=== PATIENT | female | born 1970 | race Hispanic/Latino ===

== ENCOUNTER → 2018-07-12 | Outpatient (CLI) | payer OTHER ==
[~2018-07-12] MED LIST: FUROSEMIDE INJ 10 MG/ML 4 ML VIAL ONE
--- NOTE | 2018-07-13 00:08 | Diagnostic Imaging Report ---
Renal Scan with Lasix Washout Clinical information: Unspecified hydronephrosis; renal calculi Technique: Following intravenous administration of 10 mCi of Tc-99m MAG3, dynamic images of the kidneys in the posterior projection were obtained through 40 minutes. Lasix 40 mg was administered intravenously at 10 minutes post injection of the tracer. Report: Left kidney: Perfusion of the left kidney is prompt. The kidney has a reniform shape with some but minimal thinning of the renal cortex. Extraction of tracer from the blood pool by the renal parenchyma is normal. Clearance of tracer from the renal parenchyma is prompt. Dilated calices are present throughout the kidney but the renal pelvis is not dilated. Increased pooling of tracer is seen within the mildly dilated calices. Drainage of tracer from the pelvicalyceal system is prompt and adequate prior to administration of Lasix. No significant stasis of tracer is seen within the left ureter. Right kidney: Perfusion to the right kidney is prompt. The right kidney has a reniform shape with mild thinning of the renal cortex and a wedge-shaped cortical scar on the medial aspect of the upper pole. Extraction of tracer from the blood pool by the renal parenchyma is normal. Clearance of tracer from the renal parenchyma is prompt. Dilated calices are present throughout the kidney but the renal pelvis is not dilated. Increased pooling of tracer is seen within the mildly dilated calices. Some drainage of tracer from the pelvicalyceal system is seen prior to administration of Lasix. Washout of tracer from the pelvicalyceal system following administration of Lasix is rapid with a T-1/2 of 3 minutes (normal less than 15 minutes). No significant stasis of tracer is seen within the right ureter. Differential renal function: The left kidney contributes 56% of total renal function and the right kidney contributes 44% (normal 43-57%). Impression: 1. Some loss of renal parenchyma may be present in the left kidney as evidenced by minimal thinning of the renal cortex. The function of the left kidney is otherwise normal. Caliectasis is present throughout the kidney but the renal pelvis is not dilated. No physiologically significant obstruction of the renal collecting system is present. 2. Some loss of renal parenchyma is present in the right kidney as evidenced by minimal thinning of the renal cortex and a cortical scar in the upper pole. The loss or renal parenchyma is greater than in the left kidney and this accounts for the differential function of 44%. The function of the right kidney is otherwise normal. Caliectasis is present throughout the kidney but the renal pelvis is not dilated. No physiologically significant obstruction of the renal collecting system is present. Signed by: Dr. Nelli Meza M.D. on 07/13/2018 12:04 AM
== END ==
LOC: NM 12:55
PROVIDERS: ATTEND Urology
DX: N13.30 Unspecified hydronephrosis (principal)
CPT/HCPCS: 78708; A9562; J1940

== ENCOUNTER → 2018-09-06 | Outpatient (CLI) | payer OTHER ==
--- NOTE | 2018-09-06 13:52 | Diagnostic Imaging Report ---
EXAM: ABDOMEN-1VIEW (KUB) DATE: 09/06/2018 12:14 PM INDICATION: ^[id number] ^1240 ^CALCULUS OF KIDNEY COMPARISON: None FINDINGS: 2 supine views of the abdomen show a normal distribution of air in the small and large bowel. There is a large staghorn calculus in the right kidney measuring approximately 9.1 cm in length and 3.9 cm transversely at the upper collecting system. No calcifications are seen projected on the left kidney. No specific abnormal calcification projects on the expected path of either ureter. Small rounded calcifications projected on the urinary bladder compatible with phleboliths. Cholecystectomy clips are noted. There is also surgical clips seen in the right lower quadrant of the abdomen. No acute bony abnormality. IMPRESSION: 1. Large right staghorn renal calculus. 2. No evidence for bowel dilatation or obstruction. Signed by: Dr. Reagan Meneses M.D. on 09/06/2018 1:49 PM
== END ==
LOC: RAD 12:03
PROVIDERS: ATTEND Urology
DX: N20.0 Calculus of kidney (principal)
CPT/HCPCS: 74018

== ENCOUNTER → 2019-05-24 | Outpatient (CLI) | payer OTHER ==
--- NOTE | 2019-05-24 13:44 | Diagnostic Imaging Report ---
Exam: KUB - 2 views Indication: Renal calculus Comparison: KUB 09/06/2018 Findings: There has been interval fragmentation and treatment of the right lower pole staghorn calculi and placement of a right internal nephroureteral stent. A right external nephroureteral stent terminates in the mid to distal right ureter and courses through a larger Hernandez type catheter which terminates over the right lower pole. Right upper pole staghorn calculi appear unchanged. No radiographically apparent left urinary calculi. Nonobstructive bowel gas pattern. No free air. Status post cholecystectomy. No acute osseous injury. Impression: Interval treatment of right lower pole staghorn calculi and placement of right internal nephroureteral stent as well as a right external nephroureteral catheter terminating over the mid to distal right ureter, coursing through a Hernandez type catheter terminating over the right lower pole. Unchanged right upper pole staghorn calculi. Signed by: Ashley Amin MD on 05/24/2019 1:42 PM
== END ==
LOC: RAD 12:55
PROVIDERS: ATTEND Urology
DX: N20.0 Calculus of kidney (principal)
CPT/HCPCS: 74018

== ENCOUNTER → 2019-06-27 | Day surgery (SDC) | payer OTHER ==
[2019-06-26 15:38] LABS: BLOOD UREA NITROGEN 9 mg/dL (7-26); BUN/CREATININE RATIO 14 (6-25); CARBON DIOXIDE 26 mmol/L (22-29); CHLORIDE 104 mmol/L (98-107); CREATININE, SERUM 0.65 mg/dL (0.57-1.11); EST GLOMERULAR FILTRATION RATE > 60 ML/MIN (60-); GLUCOSE 131 mg/dL (74-118); SODIUM 138 mmol/L (136-145)
[~2019-06-27] MED LIST changes: +ATORVASTATIN CA20 MG PO; +CEFAZOLIN SOD 1 GM/NS 50ML 50 ML IV ONE; +DEXAMETHASONE SOD PHOS INJ 4 MG/ML VIAL ONE; -FUROSEMIDE INJ 10 MG/ML 4 ML VIAL ONE; +IOPAMIDOL 300MG/ML 50ML INFUS..BTL IV ONE; +IRON PO; +LIDOCAINE HCL 2% LOCAL INJ 5 ML SDV VIAL INJ ONE; +MIDAZOLAM HCL 2 MG/2 ML VIAL ONE; +NITROFURANTOIN100 MG PO; +ONDANSETRON HCL INJ 2MG/ML 2ML 2 MG/ML VIAL ONE; +PIOGLITAZONE HC45 MG PO; +PROPOFOL IV EMULSION 10 MG/ML 20 ML VIAL ONE; +SCOPOLAMINE 1.5 MG PATCH ONE; +SEVOFLURANE INHAL SOLN 250 ML PEN BTL ONE; +TRADJENTA5 MG PO; +VIT D PO; +metformin PO
--- OUTSIDE RECORDS SUMMARY | 2019-06-27 07:45 | XMS REPORT ---
Author Author [facility] Address Unknown Phone Unavailable Care Team Providers [employer] Name Role Phone ISRAEL JARAMILLO Unavailable Unavailable JUSTA ROBERTS Unavailable Unavailable Payers Payer Name Policy Type Policy Number Effective Date Expiration Date Problems This patient has no known problems. Allergies, Adverse Reactions, Alerts Allergy Name Allergy Type Status Severity Reaction(s) Onset Date Inactive Date Treating Clinician Comments No Known Allergies DA Active U 2018-06-23 00:00:00 Medications This patient has no known medications. Encounters Start Date/Time End Date/Time Encounter Type Admission Type Attending Clinicians Care Facility Care Department Encounter ID 2019-05-09 09:37:00 2019-05-09 09:37:00 Outpatient [facility] [id number] 2019-03-13 11:03:00 2019-03-13 11:03:00 Outpatient [facility] [id number] 2019-01-11 10:15:00 2019-01-11 10:15:00 Outpatient [facility] [id number] 2019-01-04 07:59:00 2019-01-04 07:59:00 Outpatient [facility] [id number] Results Test Description Test Time Test Comments Text Results Atomic Results Result Comments ABDOMEN-1VIEW (KUB) 2019-05-24 13:38:00 [place] [address] Patient Name: ANDRA DU MR #: [id number] : 1970 Age/Sex: 48/F Req #: [id number] Adm Physician: Ordered by: ISRAEL JARAMILLO MD Report #: [id number] Location: [facility] Room/Bed: Procedure: [id number] DX/ABDOMEN-1VIEW (KUB) Exam Date: 05/24/19 Exam Time: 1320 REPORT STATUS: Signed Exam: KUB - 2 views Indication: Renal calculus Comparison: KUB 09/06/2018 Findings: There has been interval fragmentation and treatment of the right lower pole staghorn calculi and placement of a right internal nephroureteral stent. A right external nephroureteral stent terminates in the mid to distal right ureter and courses through a larger Hernandez type catheter which terminates over the right lower pole. Right upper pole staghorn calculi appear unchanged. No radiographically apparent left urinary calculi. Nonobstructive bowel gas pattern. No free air. Status post cholecystectomy. No acute osseous injury. Impression: Interval treatment of right lower pole staghorn calculi and placement of right internal nephroureteral stent as well as a right external nephroureteral catheter terminating over the mid to distal right ureter, coursing through a Hernandez type catheter terminating over the right lower pole. Unchanged right upper pole staghorn calculi. Signed by: Amada Gunter MD on 05/24/2019 1:42 PM Dictated By: AMADA GUNTER MD 1342 Transcribed By: RIVERA on 05/24/19 1342 COPY TO: ISRAEL JARAMILLO MD ABDOMEN-1VIEW (KUB) 2018-09-06 13:46:00 [place] [address] Patient Name: ANDRA DU MR #: [id number] : 1970 Age/Sex: 47/F Req #: [id number] Adm Physician: Ordered by: JUSTA ROBERTS MD Report #: [id number] Location: [facility] Room/Bed: Procedure: [id number] DX/ABDOMEN-1VIEW (KUB) Exam Date: 09/06/18 Exam Time: 1240 REPORT STATUS: Signed EXAM: ABDOMEN-1VIEW (KUB) DATE: 09/06/2018 12:14 PM INDICATION: [id number] 1240 CALCULUS OF KIDNEY COMPARISON: None FINDINGS: 2 supine views of the abdomen show a normal distribution of air in the small and large bowel. There is a large staghorn calculus in the right kidney measuring approximately 9.1 cm in length and 3.9 cm transversely at the upper collecting system. No calcifications are seen projected on the left kidney. No specific abnormal calcification projects on the expected path of either ureter. Small rounded calcifications projected on the urinary bladder compatible with phleboliths. Cholecystectomy clips are noted. There is also surgical clips seen in the right lower quadrant of the abdomen. No acute bony abnormality. IMPRESSION: 1. Large right staghorn renal calculus. 2. No evidence for bowel dilatation or obstruction. Signed by: Dr. Reagan Hernández M.D. on 09/06/2018 1:49 PM Dictated By: REAGAN HERNÁNDEZ MD 1349 Transcribed By: RIVERA on 09/06/18 1349 COPY TO: JUSTA ROBERTS MD RENAL SCAN W/SALINA 2018-07-12 23:52:00 [place] [address] Patient Name: ANDRA DU MR #: [id number] : 1970 Age/Sex: 47/F Req #: [id number] Adm Physician: Ordered by: JUSTA ROBERTS MD Report #: [id number] Location: [place] Room/Bed: Procedure: [id number] NM/RENAL SCAN W/LASIX Exam Date: 07/12/18 Exam Time: 1400 REPORT STATUS: Signed Renal Scan with Lasix Washout Clinical information: Unspecified hydronephrosis; renal calculi Technique: Following intravenous administration of 10 mCi of Tc-99m MAG3, dynamic images of the kidneys in the posterior projection were obtained through 40 minutes. Lasix 40 mg was administered intravenously at 10 minutes post injection of the tracer. Report: Left kidney: Perfusion of the left kidney is prompt. The kidney has a reniform shape with some but minimal thinning of the renal cortex. Extraction of tracer from the blood pool by the renal parenchyma is normal. Clearance of tracer from the renal parenchyma is prompt. Dilated calices are present throughout the kidney but the renal pelvis is not dilated. Increased pooling of tracer is seen within the mildly dilated calices. Drainage of tracer from the pelvicalyceal system is prompt and adequate prior to administration of Lasix. No significant stasis of tracer is seen within the left ureter. Right kidney: Perfusion to the right kidney is prompt. The r ight kidney has a reniform shape with mild thinning of the renal cortex and a wedge-shaped cortical scar on the medial aspect of the upper pole. Extraction of tracer from the blood pool by the renal parenchyma is normal. Clearance of tracer from the renal parenchyma is prompt. Dilated calices are present throughout the kidney but the renal pelvis is not dilated. Increased pooling of tracer is seen within the mildly dilated calices. Some drainage of tracer from the pelvicalyceal system is seen prior to administration of Lasix. Washout of tracer from the pelvicalyceal system following administration of Lasix is rapid with a T-1/2 of 3 minutes (normal less than 15 minutes). No significant stasis of tracer is seen within the right ureter. Differential renal function: The left kidney contributes 56% of total renal function and the right kidney contributes 44% (normal 43-57%). Impression: 1. Some loss of renal parenchyma may be present in the left kidney as evidenced by minimal thinning of the renal cortex. The function of the left kidney is otherwise normal. Caliectasis is present throughout the kidney but the renal pelvis is not dilated. No physiologically significant obstruction of the renal collecting system is present. 2. Some loss of renal parenchyma is present in the right kidney as evidenced by minimal thinning of the renal cortex and a cortical scar in the upper pole. The loss or renal parenchyma is greater than in the left kidney and this accounts for the differential function of 44%. The function of the right kidney is otherwise normal. Caliectasis is present throughout the kidney but the renal pelvis is not dilated. No physiologically significant obstruction of the renal collecting system is present. Signed by: Dr. Demi Meza M.D. on 07/13/2018 12:04 AM Dictated By: DEMI MEZA MD 0004 Transcribed By: RIVERA on 07/13/18 0004 COPY TO: JUSTA ROBERTS MD URINALYSIS W/O MICRO 2018-06-23 23:50:00 UA COLOR (test code=COLU) LIGHT YELLOW YELLOW UA APPEARANCE (test code=APPU) CLEAR CLEAR UA GLUCOSE DIPSTICK (test code=DGLUU) norm mg/dL NEGATIVE UA BILIRUBIN DIPSTICK (test code=BILU) NEGATIVE mg/dL NEGATIVE UA KETONE DIPSTICK (test code=KETU) neg mg/dL NEGATIVE UA SPECIFIC GRAVITY (test code=SGU) 1.010 1.001-1.035 UA BLOOD DIPSTICK (test code=TYRESE) 150 (3+) Jose Martin/uL NEGATIVE UA PH DIPSTICK (test code=SADI) 7.0 5.0-8.0 UA PROTEIN DIPSTICK (test code=PROU) neg mg/dL Neg-15 UA UROBILINIOGEN DIPSTICK (test code=URO) norm mg/dL 0.0-0.2 UA NITRITE DIPSTICK (test code=DASIA) NEGATIVE NEGATIVE UA LEUKOCYTE ESTERASE DIPSTICK (test code=LEUU) 500 Hailey/uL (3+) uL NEGATIVE UA MICROSCOPIC NEEDED? (test code=UAMICRO) YES - CT ABD PELVIS W/O [id number] 22:13:00 Name: DUANDRA BRASHERA [facility] : 1970 Age/S: 47 / F [address] [facility] Unit #: [id number] Loc: [place] [address] Phys: Chica Wilson MD Acct: [id number] Dis Date: Status: REG ER PHONE #: [phone] Exam Date: 06/23/2018 2155 FAX #: [phone] Reason: flank pain hematuria eval for stone EXAMS: CPT CODE: [id number] CT ABD PELVIS W/O CONT 78448 HISTORY: flank pain hematuria eval for stone TECHNIQUE: 5mm axial CT images were obtained through the abdomen and pelvis without contrast. Sagittal and coronal reformatted images were generated. Automated exposure control for dose reduction. COMPARISON: None FINDINGS: Mild dependent subsegmental atelectasis. Cardiomegaly. Cholecystectomy. Nonenhanced liver, pancreas, spleen, and adrenal glands are unremarkable. 7.9 cm staghorn calculus casting the right collecting system. Obstructing 5 mm distal left ureteral calculus with moderate hydroneph rosis and renal parenchymal edema. Limited evaluation the GI tract without oral contrast. Stomach, small bowel, appendix, and colon are unre markable. No free air or free fluid. No lymphadenopathy. Abdominal aorta is normal caliber. Urinary bladder is unremarkable. N onenhanced uterus and ovaries are unremarkable. No pelvic free fluid. Degenerative changes of the spine, sacral iliac joints, and hips. IMPRESSION: Obstructing 5 mm distal left ureteral calculus with moderate hydronephrosis. 7.9 cm staghorn calculus casting the right collecting system. Electronical ly Signed by Sima Head D.O. on 06/23/2018 at 2213 Report ed and signed by: Sima Head D.O. PAGE 1 Signed Re port (CONTINUED) Name: ANDRA DU [facility] : 1970 Age/S: 47 / F [address] [facility] Unit #: [id number] Loc: [facility] 7 8385 Phys: Chica Wilson MD Acct: [id number] Dis Date: Status: REG ER PHONE #: [phone] Exam Date: 06/23/20182154 FAX #: [phone] Reason: flank pain hematuria eval for stone EXAMS: CPT CODE: [id number] CT ABD PELVIS W/O CONT 84873 <Continued> CC: Chica Wilson MD Technologist:Salinas Schaefer RT(R) CTDI: DLP: Trnscb Date/Time: 06/23/2018 (2212) [email or web address] Orig Print D/T: S: 06/23/2018 (2215) CTDI: DLP: PAGE 2 Signed Report COMPREHENSIVE METABOLIC [id number] 21:11:00* Test Item Value Reference Range Comments SODIUM (test code=NA) 136 mmol/L 135-148 POTASSIUM (test code=K) 4.0 mmol/L 3.5-5.1 CHLORIDE (test code=CL) 99 mmol/L 101-109 CARBON DIOXIDE (test code=CO2) 26.8 mmol/L 21-32 ANION GAP (test code=GAP) 14 mmol/L 10-20 GLUCOSE (test code=GLU) 183 mg/dL 74-106 BLOOD UREA NITROGEN (test code=BUN) 17 mg/dL 3-21 CREATININE (test code=CREAT) 1.01 mg/dL 0.55-1.3 BUN/CREATININE RATIO (test code=BUN/CREA) 16.8 10-20 TOTAL PROTEIN (test code=PROT) 8.0 g/dL 6.5-8.4 ALBUMIN (test code=ALB) 3.7 g/dL 3.4-4.8 GLOBULIN (test code=GLOB) 4.3 G/DL 1-10 ALBUMIN/GLOBULIN RATIO (test code=A/G) 0.9 RATIO 0.75-1.50 CALCIUM (test code=CA) 8.8 mg/dL 8.4-10.2 BILIRUBIN TOTAL (test code=BILT) 0.50 mg/dL 0.0-1.0 SGOT/AST (test code=AST) 18 U/L 6-32 SGPT/ALT (test code=ALT) 36 U/L 12-78 Note: Change in REFERENCE RANGE due to new reagent method. ALKALINE PHOSPHATASE TOTAL (test code=ALKP) 106 U/L 38-126 [id number] 21:11:00* Test Item Value Reference Range Comments LIPASE (test code=LIP) 130 U/L 128-270 [id number] 21:11:00* Test Item Value Reference Range Comments MAGNESIUM (test code=MAG) 1.6 mg/dL 1.6-2.3 COMPREHENSIVE METABOLIC [id number] 21:06:00* Test Item Value Reference Range Comments SODIUM (test code=NA) 136 mmol/L 135-148 POTASSIUM (test code=K) 4.0 mmol/L 3.5-5.1 CHLORIDE (test code=CL) 99 mmol/L 101-109 CARBON DIOXIDE (test code=CO2) 26.8 mmol/L 21-32 ANION GAP (test code=GAP) 14 mmol/L 10-20 GLUCOSE (test code=GLU) 183 mg/dL 74-106 BLOOD UREA NITROGEN (test code=BUN) 17 mg/dL 3-21 CREATININE (test code=CREAT) 1.01 mg/dL 0.55-1.3 BUN/CREATININE RATIO (test code=BUN/CREA) 16.8 10-20 TOTAL PROTEIN (test code=PROT) gram/dL 6.4-8.2 ALBUMIN (test code=ALB) g/dL 3.4-5.0 GLOBULIN (test code=GLOB) g/dL 2.7-4.2 ALBUMIN/GLOBULIN RATIO (test code=A/G) 0.75-1.50 CALCIUM (test code=CA) 8.8 mg/dL 8.4-10.2 BILIRUBIN TOTAL (test code=BILT) mg/dL 0.2-1.2 SGOT/AST (test code=AST) IUnit/L 15-37 SGPT/ALT (test code=ALT) U/L 10-69 ALKALINE PHOSPHATASE TOTAL (test code=ALKP) IUnit/L 45-117 [id number] 21:06:00* Test Item Value Reference Range Comments LIPASE (test code=LIP) Unit/L 144-286 [id number] 21:06:00* Test Item Value Reference Range Comments MAGNESIUM (test code=MAG) mg/dL 1.8-2.4 URINALYSIS [id number] 21:05:00* Test Item Value Reference Range Comments UA COLOR (test code=COLU) YELLOW YELLOW UA APPEARANCE (test code=APPU) HAZY CLEAR UA GLUCOSE DIPSTICK (test code=DGLUU) 100 (1+) mg/dL NEGATIVE UA BILIRUBIN DIPSTICK (test code=BILU) NEGATIVE mg/dL NEGATIVE UA KETONE DIPSTICK (test code=KETU) 5 (Trace) mg/dL NEGATIVE UA SPECIFIC GRAVITY (test code=SGU) 1.015 1.001-1.035 UA BLOOD DIPSTICK (test code=TYRESE) 250 (4+) Jose Martin/uL NEGATIVE UA PH DIPSTICK (test code=SADI) 8.0 5.0-8.0 UA PROTEIN DIPSTICK (test code=PROU) 30 (1+) mg/dL Neg-15 UA UROBILINIOGEN DIPSTICK (test code=URO) norm mg/dL 0.0-0.2 UA NITRITE DIPSTICK (test code=DASIA) NEGATIVE NEGATIVE UA LEUKOCYTE ESTERASE DIPSTICK (test code=LEUU) 500 Hailey/uL (3+) uL NEGATIVE UA WBC (test code=WBCU) 40-50 per HPF 0-5 IN SOME URINARY TRACT INFECTIONS THERE MAY NOT BE ENOUGHWBCs IN THE URINE TO TRIGGER AN AUTOMATIC (REFLEX) URINECULTURE. A SEPERATE ORDER FOR URINE CULTURE IS RECOMMENDEDIF THERE IS STRONG SUPPORT FOR A URINARY TRACT INFECTIONCLINICALLY. UA RBC (test code=RBCU) 50-100 per HPF 0-5 UA EPITHELIAL CELLS (test code=EPIU) Moderate (5-10/hpf) per HPF Few UA BACTERIA (test code=BACU) MODERATE per HPF NONE URINALYSIS W/O [id number] 21:05:00* Test Item Value Reference Range Comments UA MICROSCOPIC NEEDED? (test code=UAMICRO) YES UR HCG [id number] 21:05:00* Test Item Value Reference Range Comments UR HCG QUAL (test code=HCGQLU) NEGATIVE This HCGQL test is NOT applicable for MALE patients.Check with nurse about probable order error.If Tumor Marker Test needed, nurse should order test "HCGTU"(Test #550.04723) URINALYSIS [id number] 21:03:00* Test Item Value Reference Range Comments UA COLOR (test code=COLU) YELLOW YELLOW UA APPEARANCE (test code=APPU) HAZY CLEAR UA GLUCOSE DIPSTICK (test code=DGLUU) 100 (1+) mg/dL NEGATIVE UA BILIRUBIN DIPSTICK (test code=BILU) NEGATIVE mg/dL NEGATIVE UA KETONE DIPSTICK (test code=KETU) 5 (Trace) mg/dL NEGATIVE UA SPECIFIC GRAVITY (test code=SGU) 1.015 1.001-1.035 UA BLOOD DIPSTICK (test code=TYRESE) 250 (4+) Jose Martin/uL NEGATIVE UA PH DIPSTICK (test code=SADI) 8.0 5.0-8.0 UA PROTEIN DIPSTICK (test code=PROU) 30 (1+) mg/dL Neg-15 UA UROBILINIOGEN DIPSTICK (test code=URO) norm mg/dL 0.0-0.2 UA NITRITE DIPSTICK (test code=DASIA) NEGATIVE NEGATIVE UA LEUKOCYTE ESTERASE DIPSTICK (test code=LEUU) 500 Hailey/uL (3+) uL NEGATIVE UA WBC (test code=WBCU) per HPF 0-5 URINALYSIS W/O [id number] 21:03:00* Test Item Value Reference Range Comments UA MICROSCOPIC NEEDED? (test code=UAMICRO) YES UR HCG [id number] 21:03:00* Test Item Value Reference Range Comments UR HCG QUAL (test code=HCGQLU) NEGATIVE This HCGQL test is NOT applicable for MALE patients.Check with nurse about probable order error.If Tumor Marker Test needed, nurse should order test "HCGTU"(Test #550.70368) URINALYSIS [id number] 21:03:00* Test Item Value Reference Range Comments UA COLOR (test code=COLU) YELLOW YELLOW UA APPEARANCE (test code=APPU) HAZY CLEAR UA GLUCOSE DIPSTICK (test code=DGLUU) 100 (1+) mg/dL NEGATIVE UA BILIRUBIN DIPSTICK (test code=BILU) NEGATIVE mg/dL NEGATIVE UA KETONE DIPSTICK (test code=KETU) 5 (Trace) mg/dL NEGATIVE UA SPECIFIC GRAVITY (test code=SGU) 1.015 1.001-1.035 UA BLOOD DIPSTICK (test code=TYRESE) 250 (4+) Jose Martin/uL NEGATIVE UA PH DIPSTICK (test code=SADI) 8.0 5.0-8.0 UA PROTEIN DIPSTICK (test code=PROU) 30 (1+) mg/dL Neg-15 UA UROBILINIOGEN DIPSTICK (test code=URO) norm mg/dL 0.0-0.2 UA NITRITE DIPSTICK (test code=DASIA) NEGATIVE NEGATIVE UA LEUKOCYTE ESTERASE DIPSTICK (test code=LEUU) 500 Hailey/uL (3+) uL NEGATIVE UA WBC (test code=WBCU) per HPF 0-5 URINALYSIS W/O [id number] 21:03:00* Test Item Value Reference Range Comments UA MICROSCOPIC NEEDED? (test code=UAMICRO) YES UR HCG [id number] 21:03:00* Test Item Value Reference Range Comments UR HCG QUAL (test code=HCGQLU) NEGATIVE This HCGQL test is NOT applicable for MALE patients.Check with nurse about probable order error.If Tumor Marker Test needed, nurse should order test "HCGTU"(Test #550.09183) CBC W/AUTO [id number] 20:57:00* Test Item Value Reference Range Comments WHITE BLOOD CELL (test code=WBC) 12.7 K/mm3 4.5-12.5 RED BLOOD CELL (test code=RBC) 4.27 mill/mm3 3.7-5.2 HEMOGLOBIN (test code=HGB) 11.5 gram/dL 11.5-15.5 HEMATOCRIT (test code=HCT) 35.7 % 36.0-46.0 MEAN CELL VOLUME (test code=MCV) 83.6 fL 80-98 MEAN CELL HGB (test code=MCH) 26.9 picogram 27.0-33.0 MEAN CELL HGB CONCETRATION (test code=MCHC) 32.2 gram/dL 33.0-36.0 RED CELL DISTRIBUTION WIDTH (test code=RDW) 15.4 % 11.6-16.2 RED CELL DISTRIBUTION WIDTH SD (test code=RDW-SD) 46.2 fL 39.1-52.0 PLATELET COUNT (test code=PLT) 329 K/mm3 150-450 MEAN PLATELET VOLUME (test code=MPV) 10.9 fL 6.7-11.0 NEUTROPHIL % (test code=NT%) 76.5 % 39.0-69.0 LYMPHOCYTE % (test code=LY%) 16.3 % 25.0-55.0 MONOCYTE % (test code=MO%) 6.3 % 0.0-10.0 EOSINOPHIL % (test code=EO%) 0.6 % 0.0-5.0 BASOPHIL % (test code=BA%) 0.3 % 0.0-1.0 NEUTROPHIL # (test code=NT#) 9.71 K/mm3 1.8-7.7 LYMPHOCYTE # (test code=LY#) 2.07 K/mm3 1.0-5.0 MONOCYTE # (test code=MO#) 0.80 K/mm3 0-0.8 EOSINOPHIL # (test code=EO#) 0.07 K/mm3 0.0-0.5 BASOPHIL # (test code=BA#) 0.04 K/mm3 0.0-0.2 MANUAL DIFF REQUIRED (test code=MDIFF) NO
[2019-06-27 11:35] VITALS: BP 134/79
--- NOTE | 2019-06-27 18:34 | Operative Report ---
DATE OF PROCEDURE: 06/27/2019 SURGEON: Merry Martins MD SERVICE: Urology. PREOPERATIVE DIAGNOSES: 1. Large right kidney stones. 2. Right nephrostomy tube. 3. J-stent in place on the right side. 4. Urinary tract infections. 5. Microhematuria. POSTOPERATIVE DIAGNOSES: 1. Large right kidney stones. 2. Right nephrostomy tube. 3. J-stent in place on the right side. 4. Urinary tract infections. 5. Microhematuria. OPERATIONS PERFORMED: 1. ESWL lithotripsy of right kidney stone (this is a staged procedure, which was planned ahead of time and will require additional procedures). 2. Nephrostogram under fluoroscopic control. TECHNOLOGY ASSISTANT: None. ANESTHESIA: General. CLINICAL INDICATION NOTE: This is a 48-year-old patient with a large diagonal stone on the right side, it was treated initially with a percutaneous nephrolithotomy, now she was brought for additional staged procedures ESWL of the right kidney stones. The patient understands that there is a limited number of shocks that we can give and say she will require additional procedures. DESCRIPTION OF PROCEDURE AND FINDINGS: After appropriate level of anesthesia was achieved, the patient was placed in lithotomy position. The patient was placed in a supine position. The stone was brought to the focus of treatment and treated with 3000 shocks today. area of stones were treated first and then it was calyceal stone. The stone appeared to change shape during the procedure. After completing the lithotripsy, a nephrostogram was done under fluoroscopic control, demonstrating fragments of stone and drainage of the kidney was demonstrated down to the bladder. The patient tolerated the procedure well, was transferred in satisfactory condition to recovery room. She will be followed in 2 weeks for planning for other treatment. Merry Martins MD [place]/MODL /[id number]
== END | disposition home or self-care (01) ==
LOC: OR 07:43
PROVIDERS: ATTEND Urology
DX: N20.0 Calculus of kidney (principal); Z93.6 Other artificial openings of urinary tract status; Z96.0 Presence of urogenital implants; N39.0 Urinary tract infection, site not specified; E11.9 Type 2 diabetes mellitus without complications; Z01.810 Encounter for preprocedural cardiovascular examination
CPT/HCPCS: 36415; 50590; 80048; 81025; 82948; 93005; J0690; J1100; J2001; J2250; J2405

== ENCOUNTER → 2019-07-12 | Outpatient (CLI) | payer OTHER ==
[~2019-07-12] MED LIST changes: -CEFAZOLIN SOD 1 GM/NS 50ML 50 ML IV ONE; -DEXAMETHASONE SOD PHOS INJ 4 MG/ML VIAL ONE; -IOPAMIDOL 300MG/ML 50ML INFUS..BTL IV ONE; -LIDOCAINE HCL 2% LOCAL INJ 5 ML SDV VIAL INJ ONE; -MIDAZOLAM HCL 2 MG/2 ML VIAL ONE; -ONDANSETRON HCL INJ 2MG/ML 2ML 2 MG/ML VIAL ONE; -PROPOFOL IV EMULSION 10 MG/ML 20 ML VIAL ONE; -SCOPOLAMINE 1.5 MG PATCH ONE; -SEVOFLURANE INHAL SOLN 250 ML PEN BTL ONE
--- NOTE | 2019-07-12 17:14 | Diagnostic Imaging Report ---
Exam: KUB - 2 views Indication: Renal calculus Comparison: Multiple prior KUBs, most recently of 05/24/2019 Findings: Right internal nephroureteral stent in place. Unchanged appearance of right upper pole staghorn calculus. No radiographically apparent left renal calculi. Nonobstructive bowel gas pattern. No free air. No acute osseous injury. Impression: Right internal nephroureteral stent in place. Unchanged right upper pole staghorn calculi. Signed by: Ashley Amin MD on 07/12/2019 5:11 PM
== END ==
LOC: RAD 15:05
PROVIDERS: ATTEND Urology
DX: N20.0 Calculus of kidney (principal)
CPT/HCPCS: 74018

== ENCOUNTER → 2019-08-01 | Day surgery (SDC) | payer OTHER ==
[2019-07-29 09:53] LABS: ANION GAP 12.8 mmol/L (8-16); BLOOD UREA NITROGEN 8 mg/dL (7-26); BUN/CREATININE RATIO 13 (6-25); CALCIUM 9.2 mg/dL (8.4-10.2); CARBON DIOXIDE 26 mmol/L (22-29); CHLORIDE 105 mmol/L (98-107); CREATININE, SERUM 0.64 mg/dL (0.57-1.11); EST GLOMERULAR FILTRATION RATE > 60 ML/MIN (60-); GLUCOSE 121 mg/dL (74-118); POTASSIUM 3.8 mmol/L (3.5-5.1); SODIUM 140 mmol/L (136-145)
[~2019-08-01] MED LIST changes: +CEFAZOLIN SOD 1 GM/NS 50ML 50 ML IV ONE; +DEXAMETHASONE SOD PHOS INJ 4 MG/ML VIAL ONE; +FENTANYL CITRATE/PF 100MCG/2 ML INJ ONE; +IOPAMIDOL 300MG/ML 50ML INFUS..BTL IV ONE; +LIDOCAINE HCL 2% LOCAL INJ 5 ML SDV VIAL INJ ONE; +METOCLOPRAMIDE HCL 10 MG/2ML VIAL ONE; +ONDANSETRON HCL INJ 2MG/ML 2ML 2 MG/ML VIAL ONE; +PROPOFOL IV EMULSION 10 MG/ML 20 ML VIAL ONE; +SEVOFLURANE INHAL SOLN 250 ML PEN BTL ONE
[2019-08-01 11:35] VITALS: BP 131/78
--- NOTE | 2019-08-01 22:10 | Operative Report ---
DATE OF PROCEDURE: 08/01/2019 SURGEON: Merry Martins MD SERVICE: Urology. PREOPERATIVE DIAGNOSES: 1. 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 2. Right double-J stent. 3. Right hydronephrosis. 4. Microhematuria. POSTOPERATIVE DIAGNOSES: 1. 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 2. Right double-J stent. 3. Right hydronephrosis. 4. Microhematuria. OPERATIONS PERFORMED: 1. Cystoscopy and right retrograde pyelogram. This is done as part of the assessment of the microhematuria, not related to the other side. 2. Removal of double-J stent from the right side. 3. Right retrograde pyelogram under fluoroscopic control. 4. Right ureteroscopy with laser fragmentation of multiple stones in the renal pelvis, mid taryn, and upper calices. 5. Interpretation of x-ray, radiologist not present. 6. Supervision of fluoroscopy, radiologist not present. ASSISTANT GROCERY: None. ANESTHESIA: General. CLINICAL INDICATION NOTE: This is a 48-year-old patient, who had underwent in the past staged procedure of percutaneous nephrolithotomy of multiple stones in the right kidney. The patient indeed has a nephrostomy tube that eventually was displaced and fell off. She does have a double-J stent in place and the patient was brought for reassessment presently. She may require additional percutaneous nephrostomy. 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 However, she is brought for reassessment and fragmentation of a large stone as possible with the laser. DESCRIPTION OF PROCEDURE AND FINDING: After proper level of anesthesia was achieved, she was placed in lithotomy position, prepped and draped in usual sterile fashion. Urethra inspected is unremarkable. Bladder neck is normal. Double-J stent is protruding to the right ureteral orifice. Open-ended catheter was inserted to the left side and retrograde pyelogram demonstrating a normal left collecting system. Following this, the double-J stent was pulled and the wire was advanced up into the kidney. This was followed by placement of the ureteral access sheath. This was followed by placement of a retrograde pyelogram demonstrating the stone in the upper calices, which are quite large. There was some defect of stones in the mid taryn, pelvis, and upper ureter. A wire was kept in place and an access sheath was placed. Flexible ureteroscopy was done. The multiple stones were encountered and fragmented with of the 300 micron laser fiber. The multiple stones were present in the upper ureter, mid taryn, and fragmentation of the staghorn stone, one side of it was done. This was quite a tedious process due to the multiple stones. Stone analysis was send in the past. It is not necessary at the present. Following a prolonged fragmentation of all the small fragment, the wire was kept in place. The sheath was removed and a 7-Spanish 24 cm long double-J stent was properly positioned on the right side. The patient tolerated procedure well, was transferred in satisfactory condition to recovery room. This is basically a staged procedure. She will require additional procedure and she knows about it. MD FERNANDO Davis/EFREN /[id number]
== END | disposition home or self-care (01) ==
LOC: OR 07:06
PROVIDERS: ATTEND Urology
DX: N20.0 Calculus of kidney (principal); Z46.6 Encounter for fitting and adjustment of urinary device; N13.30 Unspecified hydronephrosis; E11.9 Type 2 diabetes mellitus without complications; Z01.812 Encounter for preprocedural laboratory examination; Z11.59 Encounter for screening for other viral diseases; Z79.84 Long term (current) use of oral hypoglycemic drugs
CPT/HCPCS: 36415; 74420; 80048; 81025; 82948; 87635; C1766; C2617; J0690; J1100; J2001; J2405; J2765; J3010

== ENCOUNTER → 2019-11-22 | Outpatient (CLI) | payer OTHER ==
[~2019-11-22] MED LIST changes: -CEFAZOLIN SOD 1 GM/NS 50ML 50 ML IV ONE; -DEXAMETHASONE SOD PHOS INJ 4 MG/ML VIAL ONE; -FENTANYL CITRATE/PF 100MCG/2 ML INJ ONE; -IOPAMIDOL 300MG/ML 50ML INFUS..BTL IV ONE; -LIDOCAINE HCL 2% LOCAL INJ 5 ML SDV VIAL INJ ONE; -METOCLOPRAMIDE HCL 10 MG/2ML VIAL ONE; -ONDANSETRON HCL INJ 2MG/ML 2ML 2 MG/ML VIAL ONE; -PROPOFOL IV EMULSION 10 MG/ML 20 ML VIAL ONE; -SEVOFLURANE INHAL SOLN 250 ML PEN BTL ONE
--- NOTE | 2019-11-22 14:01 | Diagnostic Imaging Report ---
EXAM: ABDOMEN-1VIEW (KUB) DATE: 11/22/2019 1:05 PM INDICATION: Calculus of kidney COMPARISON: 10/17/2019 FINDINGS/IMPRESSION: Right-sided double-J ureteral stent identified in stable position. Grossly stable appearing fragmented staghorn type calculus again projecting over the right renal pelvis. No new radiographically evident renal or urinary calculi appreciated. Bowel gas pattern is nonobstructive. No acute osseous abnormality is identified. Signed by: Dr. Maurice Rodas MD on 11/22/2019 1:53 PM
== END ==
LOC: RAD 12:44
PROVIDERS: ATTEND Urology
DX: N20.0 Calculus of kidney (principal)
CPT/HCPCS: 74018

== ENCOUNTER → 2019-11-22 | Outpatient (CLI) | payer OTHER ==
--- NOTE | 2019-11-22 14:01 | Diagnostic Imaging Report ---
EXAM: SHOULDER RIGHT COMPLETE DATE: 11/22/2019 1:05 PM INDICATION: Shoulder pain COMPARISON: None FINDINGS: Internal rotation and external rotation views of the right shoulder demonstrate no evidence for acute fracture or dislocation. Bony mineralization is within normal limits. No focal lytic or blastic abnormalities are identified. The glenohumeral joint and AC joint are within normal limits. The surrounding soft tissues are unremarkable without evidence or radiopaque foreign body. The visualized right hemithorax is clear. IMPRESSION: No acute radiographic abnormality identified within the right shoulder. Signed by: Dr. Maurice Rodas MD on 11/22/2019 1:50 PM
== END ==
LOC: RAD 12:51
PROVIDERS: ATTEND Community Health Worker
DX: M25.511 Pain in right shoulder (principal)

== ENCOUNTER → 2019-12-16 | Day surgery (SDC) | payer OTHER ==
[2019-12-12 13:50] LABS: ANION GAP 13.5 mmol/L (8-16); BLOOD UREA NITROGEN 11 mg/dL (7-26); BUN/CREATININE RATIO 15 (6-25); CALCIUM 8.7 mg/dL (8.4-10.2); CARBON DIOXIDE 25 mmol/L (22-29); CHLORIDE 102 mmol/L (98-107); CREATININE, SERUM 0.73 mg/dL (0.57-1.11); EST GLOMERULAR FILTRATION RATE > 60 ML/MIN (60-); GLUCOSE 166 mg/dL (74-118); POTASSIUM 3.5 mmol/L (3.5-5.1); SODIUM 137 mmol/L (136-145)
[~2019-12-16] MED LIST changes: +B&O 60MG R/S 60 MG SUPP PR ONE; +CEFAZOLIN SOD 1 GM/NS 50ML 50 ML IV ONE; +DEXAMETHASONE SOD PHOS INJ 4 MG/ML VIAL ONE; +FENTANYL CITRATE/PF 100MCG/2 ML INJ ONE; +HYDROCHLOROTHIA25 MG PO; +IOPAMIDOL 300MG/ML 50ML INFUS..BTL IV ONE; +LIDOCAINE HCL 2% LOCAL INJ 5 ML SDV VIAL INJ ONE; +MIDAZOLAM HCL 2 MG/2 ML VIAL ONE; +ONDANSETRON HCL INJ 2MG/ML 2ML 2 MG/ML VIAL ONE; +PROPOFOL IV EMULSION 10 MG/ML 20 ML VIAL ONE; +SEVOFLURANE INHAL SOLN 250 ML PEN BTL ONE
[2019-12-16 14:35] VITALS: BP 143/88
--- NOTE | 2019-12-17 03:46 | Operative Report ---
DATE OF PROCEDURE: 12/16/2019 SURGEON: Merry Martins MD SERVICE: Urology. PREOPERATIVE DIAGNOSES: 1. Right nephrolithiasis. 2. Right double-J stent. 3. Right microhematuria. POSTOPERATIVE DIAGNOSES: 1. Right nephrolithiasis. 2. Right double-J stent. 3. Right microhematuria. OPERATIONS PERFORMED: 1. Cystoscopy and left retrograde pyelograms under fluoroscopic control. This is not related to the other side and done with separate instrument. 2. Removal of double-J stent from the right side. 3. Right retrograde pyelograms under fluoroscopic control. 4. Right ureteroscopy with holmium laser fragmentation of stones. 5. Removal of stone with stone basket. 6. Placement of double-J stent 7-Norwegian 24 cm long to the right side. 7. Interpretation of x-ray, radiologist not present. 8. Supervision of fluoroscopy, radiologist not present. NUCLEAR MEDICINE CHIEF TECHNOLOGIST: None. ANESTHESIA: General. CLINICAL INDICATION: Note, this is a 49-year-old patient with large stones on the right side. She was brought for further treatment as one of the stages in managing the stones. Procedure was discussed with the patient. Potential benefit and complication discussed, explained, and she is under the knowledge that she may need an additional procedures in the future. DESCRIPTION OF PROCEDURE AND FINDINGS: After the proper level of anesthesia was achieved, she was placed in lithotomy position, prepped and draped in a sterile fashion. Urethra inspected, unremarkable. Bladder outlet is normal. Both ureteral orifices are in normal position. Double-J stent was protruding from the right side. Open-end catheter was inserted to the left side. Retrograde pyelogram demonstrating a normal collecting system and ureter on the left side. Following this, the double-J stent from the right side was removed, open-end catheter was inserted and retrograde pyelograms were done demonstrating some areas of dilation of the collecting system on the right side and the stones. A wire was kept in place and the excess sheath was advanced up into . Following this, the flexible ureteroscopy was done. Stones were identified and fragmented with the holmium laser using a 200 fiber. Following this, stone basket was used to remove some fragments. The wire was kept in place and a double J stent 7-Norwegian 24 cm long was properly positioned on the right side. Proper position was verified by x-ray and endoscopy. The patient tolerated the procedure well, was transferred in satisfactory condition to recovery room. She will be followed in the office for further treatment. MD FERNANDO Davis/EFREN /[id number]
== END | disposition home or self-care (01) ==
LOC: OR 10:45
PROVIDERS: ATTEND Urology
DX: N20.0 Calculus of kidney (principal); Z46.6 Encounter for fitting and adjustment of urinary device; I10 Essential (primary) hypertension; Z01.810 Encounter for preprocedural cardiovascular examination; Z01.812 Encounter for preprocedural laboratory examination; Z11.59 Encounter for screening for other viral diseases; Z79.84 Long term (current) use of oral hypoglycemic drugs
CPT/HCPCS: 36415 ×2; 52356; 74420; 80048; 81025; 82948; 88300; 93005; C1758; C1766; C2617; J0690; J1100; J2001; J2250; J2405; J2704; J3010; Q9967; U0002

== ENCOUNTER → 2020-01-01 | Outpatient (CLI) | payer OTHER ==
[~2020-01-01] MED LIST changes: -B&O 60MG R/S 60 MG SUPP PR ONE; -CEFAZOLIN SOD 1 GM/NS 50ML 50 ML IV ONE; -DEXAMETHASONE SOD PHOS INJ 4 MG/ML VIAL ONE; -FENTANYL CITRATE/PF 100MCG/2 ML INJ ONE; -IOPAMIDOL 300MG/ML 50ML INFUS..BTL IV ONE; -LIDOCAINE HCL 2% LOCAL INJ 5 ML SDV VIAL INJ ONE; -MIDAZOLAM HCL 2 MG/2 ML VIAL ONE; -ONDANSETRON HCL INJ 2MG/ML 2ML 2 MG/ML VIAL ONE; -PROPOFOL IV EMULSION 10 MG/ML 20 ML VIAL ONE; -SEVOFLURANE INHAL SOLN 250 ML PEN BTL ONE
--- NOTE | 2020-01-01 09:56 | Diagnostic Imaging Report ---
Abdomen, one view INDICATION: ^[id number] ^[id number] ^CALCULUS OF KIDNEY Comparison: 11/22/2019. Discussion: Stable right-sided double-J ureteral stent. Interval improvement in the amount of fragmented right staghorn calculi projecting over the right renal pelvis. No definite new radiographically apparent renal calculi. Stable postsurgical changes from cholecystectomy. Stable phlebolith in the pelvis. Bowel gas pattern is nonobstructive. Moderate colonic stool retention is noted. IMPRESSION: Interval improvement in the amount of residual fragmented right staghorn calculus. No definite new radiographically apparent renal calculi. Stable right double-J internal ureteral stent. Signed by: Oswaldo Baron MD on 01/01/2020 9:52 AM
== END ==
LOC: RAD 08:57
PROVIDERS: ATTEND Urology
DX: N20.0 Calculus of kidney (principal)
CPT/HCPCS: 74018

== ENCOUNTER → 2020-01-24 | Day surgery (SDC) | payer OTHER ==
[2020-01-21 11:56] LABS: ANION GAP 11.7 mmol/L (8-16); BLOOD UREA NITROGEN 8 mg/dL (7-26); BUN/CREATININE RATIO 13 (6-25); CALCIUM 8.5 mg/dL (8.4-10.2); CARBON DIOXIDE 24 mmol/L (22-29); CHLORIDE 107 mmol/L (98-107); CREATININE, SERUM 0.64 mg/dL (0.57-1.11); EST GLOMERULAR FILTRATION RATE > 60 ML/MIN (60-); GLUCOSE 122 mg/dL (74-118); POTASSIUM 3.7 mmol/L (3.5-5.1); SODIUM 139 mmol/L (136-145)
[~2020-01-24] MED LIST changes: +CEFAZOLIN SOD 1 GM/NS 50ML 50 ML IV ONE; +DEXAMETHASONE SOD PHOS INJ 4 MG/ML VIAL ONE; +FENTANYL CITRATE/PF 100MCG/2 ML INJ ONE; +LIDOCAINE HCL 2% LOCAL INJ 5 ML SDV VIAL INJ ONE; +MIDAZOLAM HCL 2 MG/2 ML VIAL ONE; +ONDANSETRON HCL INJ 2MG/ML 2ML 2 MG/ML VIAL ONE; +PROPOFOL IV EMULSION 10 MG/ML 20 ML VIAL ONE; +SEVOFLURANE INHAL SOLN 250 ML PEN BTL ONE
[2020-01-24 10:25] VITALS: BP 142/82
--- NOTE | 2020-01-24 16:42 | Operative Report ---
DATE OF PROCEDURE: 01/24/2020 SURGEON: Merry Martins MD SERVICE: Urology. PREOPERATIVE DIAGNOSES: 1. Right nephrolithiasis and history of Staghorn stone. 2. Presence of double-J stent on the right side. 3. Microhematuria. POSTOPERATIVE DIAGNOSES: 1. Right nephrolithiasis and history of Staghorn stone. 2. Presence of double-J stent on the right side. 3. Microhematuria. OPERATION PERFORMED: ESWL lithotripsy of right kidney stone. SUPPLY SPECIALIST: None. ANESTHESIA: General. CLINICAL INDICATION: Note this is a 49-year-old patient that had stage procedures for large Staghorn stone of the right kidney. She has a stent in place and she was brought for lithotripsy of some residual stones. The procedure was discussed with the patient. She knows that this is a staged procedure. She may require the stent as well as additional procedures. DESCRIPTION OF PROCEDUREAND FINDINGS: After appropriate level of anesthesia was achieved, the patient was placed in supine position. The stone was brought to the focus of treatment and treated with 3000 shocks initially at a low level at 60 per minute after several 100s was increased to 60 and eventually to 120. The stone disintegrated very well. The patient tolerated procedure well and was transferred in satisfactory condition to recovery. Postop orders and followup was given. Merry Martins MD [facility]/MODL /[id number]
== END | disposition home or self-care (01) ==
LOC: OR 06:59
PROVIDERS: ATTEND Urology
DX: N20.0 Calculus of kidney (principal); Z96.0 Presence of urogenital implants; E11.9 Type 2 diabetes mellitus without complications; Z01.812 Encounter for preprocedural laboratory examination; Z11.59 Encounter for screening for other viral diseases; Z79.84 Long term (current) use of oral hypoglycemic drugs
CPT/HCPCS: 36415 ×2; 50590; 80048; 81025; 82948; J0690; J1100; J2001; J2250; J2405; J2704; J3010; U0002

== ENCOUNTER → 2020-02-18 | Outpatient (CLI) | payer OTHER ==
[~2020-02-18] MED LIST changes: -CEFAZOLIN SOD 1 GM/NS 50ML 50 ML IV ONE; -DEXAMETHASONE SOD PHOS INJ 4 MG/ML VIAL ONE; -FENTANYL CITRATE/PF 100MCG/2 ML INJ ONE; -LIDOCAINE HCL 2% LOCAL INJ 5 ML SDV VIAL INJ ONE; -MIDAZOLAM HCL 2 MG/2 ML VIAL ONE; -ONDANSETRON HCL INJ 2MG/ML 2ML 2 MG/ML VIAL ONE; -PROPOFOL IV EMULSION 10 MG/ML 20 ML VIAL ONE; -SEVOFLURANE INHAL SOLN 250 ML PEN BTL ONE
== END ==
LOC: RAD 14:22
PROVIDERS: ATTEND Urology
DX: N20.0 Calculus of kidney (principal)
CPT/HCPCS: 74018

== ENCOUNTER → 2020-03-25 | Day surgery (SDC) | payer OTHER ==
[2020-03-23 11:42] LABS: ANION GAP 16.2 mmol/L (8-16); BLOOD UREA NITROGEN 8 mg/dL (7-26); BUN/CREATININE RATIO 12 (6-25); CALCIUM 8.9 mg/dL (8.4-10.2); CARBON DIOXIDE 22 mmol/L (22-29); CHLORIDE 103 mmol/L (98-107); CREATININE, SERUM 0.67 mg/dL (0.57-1.11); EST GLOMERULAR FILTRATION RATE > 60 ML/MIN (60-); GLUCOSE 171 mg/dL (74-118); POTASSIUM 4.2 mmol/L (3.5-5.1); SODIUM 137 mmol/L (136-145)
[~2020-03-25] MED LIST changes: +CEFAZOLIN SOD 1 GM/NS 50ML 50 ML IV ONE; +FENTANYL CITRATE/PF 100MCG/2 ML INJ ONE; +IOPAMIDOL 300MG/ML 50ML INFUS..BTL IV ONE; +LIDOCAINE HCL 2% JELLY 5 ML TUBE ONE; +LIDOCAINE HCL 2% LOCAL INJ 5 ML SDV VIAL INJ ONE; +MIDAZOLAM HCL 2 MG/2 ML VIAL ONE; +ONDANSETRON HCL INJ 2MG/ML 2ML 2 MG/ML VIAL ONE; +PROPOFOL IV EMULSION 10 MG/ML 20 ML VIAL ONE; +SEVOFLURANE INHAL SOLN 250 ML PEN BTL ONE
[2020-03-25 11:00] VITALS: BP 142/90
== END | disposition home or self-care (01) ==
LOC: OR 07:36
PROVIDERS: ATTEND Urology
DX: N20.0 Calculus of kidney (principal); E11.9 Type 2 diabetes mellitus without complications; D64.9 Anemia, unspecified; Z46.6 Encounter for fitting and adjustment of urinary device; Z01.810 Encounter for preprocedural cardiovascular examination; Z01.812 Encounter for preprocedural laboratory examination; Z20.828 Contact with and (suspected) exposure to other viral communicable diseases; Z79.84 Long term (current) use of oral hypoglycemic drugs
CPT/HCPCS: 36415 ×2; 52356; 74420; 80048; 81025; 82948; 88300; 93005; C1758; C2617; J0690; J2001 ×2; J2405; J2704; Q9967; U0002

== ENCOUNTER → 2020-05-21 | Day surgery (SDC) | payer OTHER ==
[2020-05-19 11:31] LABS: ANION GAP 9.2 mmol/L (8-16); BLOOD UREA NITROGEN 15 mg/dL (7-26); BUN/CREATININE RATIO 21 (6-25); CALCIUM 8.8 mg/dL (8.4-10.2); CARBON DIOXIDE 27 mmol/L (22-29); CHLORIDE 103 mmol/L (98-107); CREATININE, SERUM 0.73 mg/dL (0.57-1.11); EST GLOMERULAR FILTRATION RATE > 60 ML/MIN (60-); GLUCOSE 203 mg/dL (74-118); POTASSIUM 4.2 mmol/L (3.5-5.1); SODIUM 135 mmol/L (136-145)
[~2020-05-21] MED LIST changes: +ATROPINE SULFATE 1 MG/ML VIAL ONE; +B&O 60MG R/S 60 MG SUPP PR ONE; +DEXAMETHASONE SOD PHOS INJ 4 MG/ML VIAL ONE; +GLIMEPIRIDE2 MG PO; -LIDOCAINE HCL 2% JELLY 5 ML TUBE ONE; +NEOSTIGMINE 1 MG/ML 10ML VIAL ONE; +ROCURONIUM BROMIDE 10 MG/ML 5ML VIAL IV ONE; +ZESTRIL10 MG PO
[2020-05-21 14:20] VITALS: BP 110/73
== END | disposition home or self-care (01) ==
LOC: OR 09:14
PROVIDERS: ATTEND Urology
DX: N20.0 Calculus of kidney (principal); Z46.6 Encounter for fitting and adjustment of urinary device; N30.80 Other cystitis without hematuria; N32.89 Other specified disorders of bladder; N13.30 Unspecified hydronephrosis; N28.89 Other specified disorders of kidney and ureter; E11.9 Type 2 diabetes mellitus without complications; I10 Essential (primary) hypertension; E78.5 Hyperlipidemia, unspecified; Z01.812 Encounter for preprocedural laboratory examination; Z20.822 Contact with and (suspected) exposure to COVID-19; Z79.84 Long term (current) use of oral hypoglycemic drugs
CPT/HCPCS: 36415 ×2; 52356; 74420; 80048; 81025; 82948; 88300; C1758 ×2; C2617; J0461; J0690; J1100; J2001; J2405; J2704; J2710; Q9967; U0002; J2250; J3010

== ENCOUNTER → 2020-07-02 | Day surgery (SDC) | payer OTHER ==
[2020-06-29 10:18] LABS: ANION GAP 13.9 mmol/L (8-16); BLOOD UREA NITROGEN 12 mg/dL (7-26); BUN/CREATININE RATIO 16 (6-25); CALCIUM 8.4 mg/dL (8.4-10.2); CARBON DIOXIDE 23 mmol/L (22-29); CHLORIDE 104 mmol/L (98-107); CREATININE, SERUM 0.76 mg/dL (0.57-1.11); EST GLOMERULAR FILTRATION RATE > 60 ML/MIN (60-); GLUCOSE 208 mg/dL (74-118); POTASSIUM 3.9 mmol/L (3.5-5.1); SODIUM 137 mmol/L (136-145)
[~2020-07-02] MED LIST changes: -ATROPINE SULFATE 1 MG/ML VIAL ONE; +GENTAMICIN 80MG/NS 100 ML 200 ML IV ONE; +MORPHINE SULFATE INJ 10 MG/ML ONE; -NEOSTIGMINE 1 MG/ML 10ML VIAL ONE; -ROCURONIUM BROMIDE 10 MG/ML 5ML VIAL IV ONE
[2020-07-02 13:25] VITALS: BP 125/75
== END | disposition home or self-care (01) ==
LOC: OR 09:45
PROVIDERS: ATTEND Urology
DX: N20.0 Calculus of kidney (principal); N13.30 Unspecified hydronephrosis; N30.30 Trigonitis without hematuria; Z46.6 Encounter for fitting and adjustment of urinary device; E11.9 Type 2 diabetes mellitus without complications; I10 Essential (primary) hypertension; Z01.810 Encounter for preprocedural cardiovascular examination; Z01.812 Encounter for preprocedural laboratory examination; Z20.822 Contact with and (suspected) exposure to COVID-19; Z79.84 Long term (current) use of oral hypoglycemic drugs
CPT/HCPCS: 36415 ×2; 52214; 52353; 74420; 80048; 81025; 82948; 88305; 93005; C1758; J0690; J1100; J1580; J2001; J2250; J2270; J2405; J2704; J3010; Q9967; U0002

== ENCOUNTER → 2021-01-29 | Outpatient (CLI) | payer OTHER ==
[~2021-01-29] MED LIST changes: -B&O 60MG R/S 60 MG SUPP PR ONE; -CEFAZOLIN SOD 1 GM/NS 50ML 50 ML IV ONE; -DEXAMETHASONE SOD PHOS INJ 4 MG/ML VIAL ONE; -FENTANYL CITRATE/PF 100MCG/2 ML INJ ONE; -GENTAMICIN 80MG/NS 100 ML 200 ML IV ONE; -IOPAMIDOL 300MG/ML 50ML INFUS..BTL IV ONE; -LIDOCAINE HCL 2% LOCAL INJ 5 ML SDV VIAL INJ ONE; -MIDAZOLAM HCL 2 MG/2 ML VIAL ONE; -MORPHINE SULFATE INJ 10 MG/ML ONE; -ONDANSETRON HCL INJ 2MG/ML 2ML 2 MG/ML VIAL ONE; -PROPOFOL IV EMULSION 10 MG/ML 20 ML VIAL ONE; -SEVOFLURANE INHAL SOLN 250 ML PEN BTL ONE
== END ==
LOC: US 11:28
PROVIDERS: ATTEND Urology
DX: N20.0 Calculus of kidney (principal); N39.0 Urinary tract infection, site not specified
CPT/HCPCS: 74018; 76770

== ENCOUNTER → 2021-02-25 | Day surgery (SDC) | payer OTHER ==
[2021-02-23 14:18] LABS: ANION GAP 12.1 mmol/L (8-16); CALCIUM 8.5 mg/dL (8.4-10.2); CREATININE, SERUM 0.89 mg/dL (0.57-1.11); POTASSIUM 4.1 mmol/L (3.5-5.1)
[~2021-02-25] MED LIST changes: +BELLADONNA/OPIUM 30 MG SUPP RC ONE; +DEXAMETHASONE SOD PHOS INJ 4 MG/ML SDV ONE; +FENTANYL CITRATE/PF 100MCG/2 ML INJ ONE; +IOPAMIDOL 300MG/ML 50ML INFUS..BTL IV ONE; +LIDOCAINE HCL 2% LOCAL INJ 5 ML SDV VIAL INJ ONE; +MIDAZOLAM HCL 2 MG/2 ML VIAL ONE; +ONDANSETRON HCL INJ 2MG/ML 2ML 2 MG/ML VIAL ONE; +POVIDONE IODINE 0.05% 0.05 % ML PO ONE; +PROPOFOL IV EMULSION 10 MG/ML 20 ML VIAL ONE; +SEVOFLURANE INHAL SOLN 250 ML PEN BTL ONE
[2021-02-25 14:25] VITALS: BP 124/72
== END | disposition home or self-care (01) ==
LOC: OR 10:47
PROVIDERS: ATTEND Urology
DX: N20.0 Calculus of kidney (principal); N13.30 Unspecified hydronephrosis; N39.0 Urinary tract infection, site not specified; Q63.8 Other specified congenital malformations of kidney; I10 Essential (primary) hypertension; E78.6 Lipoprotein deficiency; E11.9 Type 2 diabetes mellitus without complications; Z01.810 Encounter for preprocedural cardiovascular examination; Z01.812 Encounter for preprocedural laboratory examination; Z20.822 Contact with and (suspected) exposure to COVID-19; Z79.84 Long term (current) use of oral hypoglycemic drugs; Z79.899 Other long term (current) drug therapy; Z68.35 Body mass index [BMI] 35.0-35.9, adult
CPT/HCPCS: 36415 ×2; 52351; 74420; 80048; 81025; 82948; 93005; C1758; J0690; J1100; J2001; J2250; J2405; J2704; J3010; Q9967; U0002

== ENCOUNTER 2022-01-14 10:51 | Inpatient (IN) | payer OTHER ==
[2022-01-13 13:17] LABS: BASOPHILS # (AUTO) 0.1 (0.0-0.1); BASOPHILS % 0.7 % (0.0-1.0); EOSINOPHILS # (AUTO) 0.1 (0.0-0.4); EOSINOPHILS % 1.3 % (0.0-6.0); HEMATOCRIT 43.3 % (34.2-44.1); HEMOGLOBIN 13.2 g/dL (12.0-16.0); LYMPHOCYTES # (AUTO) 2.2 (1.0-3.2); LYMPHOCYTES % 26.1 % (18.0-39.1); MEAN CORPUSCULAR HEMOGLOBIN 26.2 pg (28-32); MEAN CORPUSCULAR HGB CONC 30.5 g/dL (31-35); MEAN CORPUSCULAR VOLUME 86.1 fL (81-99); MONOCYTES # (AUTO) 0.5 (0.2-0.8); MONOCYTES % 6.5 % (4.4-11.3); NEUTROPHILS # (AUTO) 5.3 (2.1-6.9); NEUTROPHILS % 64.2 % (38.7-80.0); PLATELET COUNT 342 x10e3/uL (140-360); RED BLOOD COUNT 5.03 x10e6/uL (3.6-5.1); RED CELL DISTRIBUTION WIDTH 14.3 % (11.7-14.4)
[2022-01-13 13:32] LABS: INR 0.92; PROTHROMBIN TIME 13.2 seconds (11.9-14.5)
[2022-01-13 13:33] LABS: PARTIAL THROMBOPLASTIN TIME 27.9 seconds (23.8-35.5)
[2022-01-13 13:36] LABS: ANION GAP 17.3 mmol/L (8-16); CALCIUM 9.2 mg/dL (8.4-10.2); CREATININE, SERUM 0.76 mg/dL (0.57-1.11); POTASSIUM 4.3 mmol/L (3.5-5.1)
[~2022-01-14] VITALS: Ht 157.5 cm; Wt 86.2 kg
[~2022-01-14 10:51] MED LIST changes: -BELLADONNA/OPIUM 30 MG SUPP RC ONE; -DEXAMETHASONE SOD PHOS INJ 4 MG/ML SDV ONE; +FARXIGA5 MG PO; -FENTANYL CITRATE/PF 100MCG/2 ML INJ ONE; -IOPAMIDOL 300MG/ML 50ML INFUS..BTL IV ONE; -LIDOCAINE HCL 2% LOCAL INJ 5 ML SDV VIAL INJ ONE; -MIDAZOLAM HCL 2 MG/2 ML VIAL ONE; -ONDANSETRON HCL INJ 2MG/ML 2ML 2 MG/ML VIAL ONE; -POVIDONE IODINE 0.05% 0.05 % ML PO ONE; -PROPOFOL IV EMULSION 10 MG/ML 20 ML VIAL ONE; -SEVOFLURANE INHAL SOLN 250 ML PEN BTL ONE
[2022-01-14] MEDS ORDERED: MANNITOL 25% 12.5GM/50ML 0 ML ONE (11:17)
[2022-01-14] MEDS ORDERED: ACETAMINOPHEN 1000 MG/100 ML IV PRN (15:15)
[2022-01-14] MEDS: SODIUM CHLORIDE 0.9% 250ML IRRIG IR SCH ×3 (15:15→23:15)
[2022-01-14] MEDS ORDERED: DIPHENHYDRAMINE HCL INJ 50 MG/ML VIAL IM PRN (15:15)
[2022-01-14] MEDS ORDERED: NALOXONE HCL INJ 0.4 MG/ML AMP IV PRN (15:15)
[2022-01-14] MEDS: MORPHINE SULFATE 1 MG/ML 30ML PCA IV PRN (15:30)
[2022-01-14] MEDS ORDERED: FENTANYL CITRATE/PF 100MCG/2 ML INJ ONE (16:00)
[2022-01-14 16:14] LABS: BASOPHILS # (AUTO) 0.1 (0.0-0.1); BASOPHILS % 0.5 % (0.0-1.0); HEMATOCRIT 32.7 % (34.2-44.1); HEMOGLOBIN 10.3 g/dL (12.0-16.0); LYMPHOCYTES # (AUTO) 1.8 (1.0-3.2); LYMPHOCYTES % 7.2 % (18.0-39.1); MEAN CORPUSCULAR HEMOGLOBIN 26.4 pg (28-32); MEAN CORPUSCULAR HGB CONC 31.5 g/dL (31-35); MEAN CORPUSCULAR VOLUME 83.8 fL (81-99); MONOCYTES # (AUTO) 0.5 (0.2-0.8); MONOCYTES % 2.2 % (4.4-11.3); NEUTROPHILS # (AUTO) 21.7 (2.1-6.9); NEUTROPHILS % 88.8 % (38.7-80.0); PLATELET COUNT 307 x10e3/uL (140-360); RED CELL DISTRIBUTION WIDTH 14.5 % (11.7-14.4)
[2022-01-14 16:30] LABS: ANION GAP 15.3 mmol/L (8-16); CALCIUM 8.1 mg/dL (8.4-10.2); CREATININE, SERUM 0.83 mg/dL (0.57-1.11); POTASSIUM 4.3 mmol/L (3.5-5.1)
[2022-01-14 17:50] VITALS: BP 92/56
[2022-01-14 18:02] VITALS: BP 92/56
[2022-01-14] MEDS: D5.45%NS/KCL 20MEQ 1,000 ML IV SCH (18:36)
[2022-01-14 20:52] VITALS: BP 92/56
[2022-01-14 20:58] VITALS: BP 96/52
[2022-01-14] MEDS: ONDANSETRON HCL INJ 2MG/ML 2ML 2 MG/ML VIAL IV PRN (23:27)
[2022-01-15] VITALS (8 sets, daily range): BP systolic 91–103; BP diastolic 50–62
[2022-01-15] MEDS: MORPHINE SULFATE 1 MG/ML 30ML PCA IV PRN (02:17)
[2022-01-15] MEDS: SODIUM CHLORIDE 0.9% 250ML IRRIG IR SCH ×3 (03:15→11:15)
[2022-01-15] MEDS: D5.45%NS/KCL 20MEQ 1,000 ML IV SCH ×3 (04:07→17:32)
[2022-01-15 07:13] LABS: BASOPHILS % 0.1 % (0.0-1.0); HEMATOCRIT 32.3 % (34.2-44.1); HEMOGLOBIN 9.4 g/dL (12.0-16.0); LYMPHOCYTES # (AUTO) 1.3 (1.0-3.2); MEAN CORPUSCULAR HGB CONC 29.1 g/dL (31-35); MEAN CORPUSCULAR VOLUME 89.2 fL (81-99); MONOCYTES # (AUTO) 1.3 (0.2-0.8); MONOCYTES % 9.1 % (4.4-11.3); NEUTROPHILS # (AUTO) 11.4 (2.1-6.9); NEUTROPHILS % 81.1 % (38.7-80.0); PLATELET COUNT 315 x10e3/uL (140-360); RED BLOOD COUNT 3.62 x10e6/uL (3.6-5.1); RED CELL DISTRIBUTION WIDTH 14.6 % (11.7-14.4)
[2022-01-15 07:42] LABS: ANION GAP 14.8 mmol/L (8-16); CALCIUM 7.9 mg/dL (8.4-10.2); POTASSIUM 4.8 mmol/L (3.5-5.1)
[2022-01-15] MEDS ORDERED: MORPHINE SULFATE 1 MG/ML 30ML PCA IV PRN (13:15)
[2022-01-15] MEDS ORDERED: DIPHENHYDRAMINE HCL INJ 50 MG/ML VIAL IV PRN (18:30)
[2022-01-15] MEDS: DEXTROSE 5%/0.45% SOD CHL 1,000 ML IV SCH (18:45)
[2022-01-15] MEDS ORDERED: MIDODRINE HCL 5 MG TABLET PO SCH (22:30)
[2022-01-16] VITALS (8 sets, daily range): BP systolic 88–114; BP diastolic 51–66
[2022-01-16] MEDS: DEXTROSE 5%/0.45% SOD CHL 1,000 ML IV SCH ×2 (02:30→11:00)
[2022-01-16 06:56] LABS: BASOPHILS % 0.2 % (0.0-1.0); EOSINOPHILS # (AUTO) 0.1 (0.0-0.4); EOSINOPHILS % 0.6 % (0.0-6.0); HEMATOCRIT 27.7 % (34.2-44.1); HEMOGLOBIN 8.2 g/dL (12.0-16.0); LYMPHOCYTES # (AUTO) 2.2 (1.0-3.2); LYMPHOCYTES % 18.2 % (18.0-39.1); MEAN CORPUSCULAR HEMOGLOBIN 26.5 pg (28-32); MEAN CORPUSCULAR HGB CONC 29.6 g/dL (31-35); MEAN CORPUSCULAR VOLUME 89.6 fL (81-99); MONOCYTES % 8.4 % (4.4-11.3); NEUTROPHILS # (AUTO) 8.7 (2.1-6.9); NEUTROPHILS % 71.9 % (38.7-80.0); PLATELET COUNT 266 x10e3/uL (140-360); RED BLOOD COUNT 3.09 x10e6/uL (3.6-5.1); RED CELL DISTRIBUTION WIDTH 14.8 % (11.7-14.4)
[2022-01-16 07:23] LABS: ANION GAP 10.2 mmol/L (8-16); CALCIUM 7.7 mg/dL (8.4-10.2); CREATININE, SERUM 0.71 mg/dL (0.57-1.11); POTASSIUM 4.2 mmol/L (3.5-5.1)
[2022-01-16] MEDS ORDERED: Morphine 2mg Syringe 2 MG/ML SYR IV PRN (10:30)
[2022-01-16] MEDS ORDERED: ACETAMINOPHEN/CODEINE 300MG - 30MG TAB PO PRN (10:30)
[2022-01-16] MEDS: ACETAMINOPHEN 1000 MG/100 ML IV SCH ×2 (11:44→18:19)
[2022-01-16] MEDS ORDERED: DEXTROSE 50% SYRINGE 50 ML IV PRN (12:45)
[2022-01-16] MEDS: SENNA-S TABLET PO SCH (16:09)
[2022-01-16] MEDS: SODIUM CHLORIDE 0.9% 1000ML 1,000 ML IV SCH (16:09)
[2022-01-16] MEDS: INSULIN LISPRO 100 UNIT/1 ML 3ML VIAL SQ SCH ×2 (16:12→20:56)
[2022-01-17] VITALS (8 sets, daily range): BP systolic 103–125; BP diastolic 55–74
[2022-01-17] MEDS: ACETAMINOPHEN 1000 MG/100 ML IV SCH ×2 (04:43)
[2022-01-17] MEDS: SODIUM CHLORIDE 0.9% 1000ML 1,000 ML IV SCH (04:50)
[2022-01-17] MEDS: ONDANSETRON HCL INJ 2MG/ML 2ML 2 MG/ML VIAL IV PRN (05:40)
[2022-01-17 06:05] LABS: BASOPHILS % 0.3 % (0.0-1.0); EOSINOPHILS # (AUTO) 0.1 (0.0-0.4); EOSINOPHILS % 0.7 % (0.0-6.0); HEMATOCRIT 26.1 % (34.2-44.1); HEMOGLOBIN 8.1 g/dL (12.0-16.0); LYMPHOCYTES # (AUTO) 2.3 (1.0-3.2); LYMPHOCYTES % 22.9 % (18.0-39.1); MEAN CORPUSCULAR HEMOGLOBIN 26.6 pg (28-32); MEAN CORPUSCULAR VOLUME 85.9 fL (81-99); MONOCYTES # (AUTO) 0.7 (0.2-0.8); MONOCYTES % 7.1 % (4.4-11.3); NEUTROPHILS # (AUTO) 6.8 (2.1-6.9); NEUTROPHILS % 67.9 % (38.7-80.0); PLATELET COUNT 250 x10e3/uL (140-360); RED BLOOD COUNT 3.04 x10e6/uL (3.6-5.1); RED CELL DISTRIBUTION WIDTH 14.9 % (11.7-14.4)
[2022-01-17 06:28] LABS: ANION GAP 11.1 mmol/L (8-16); CALCIUM 8.4 mg/dL (8.4-10.2); CREATININE, SERUM 0.73 mg/dL (0.57-1.11); POTASSIUM 4.1 mmol/L (3.5-5.1)
[2022-01-17] MEDS: SENNA-S TABLET PO SCH ×2 (08:04→16:46)
[2022-01-17] MEDS: PANTOPRAZOLE SOD 40 MG TABEC PO SCH (08:04)
[2022-01-17] MEDS: INSULIN LISPRO 100 UNIT/1 ML 3ML VIAL SQ SCH ×4 (08:10→16:39)
[2022-01-17] MEDS ORDERED: Morphine 4mg INJECTION 4 MG/ML INJ IV PRN (10:30)
[2022-01-17] MEDS: HYDROCODONE/APAP 10MG-325MG TAB PO PRN ×2 (11:46→17:31)
[2022-01-17] MEDS: IRON SUCROSE 100 MG in SODIUM CHLORIDE 0.9% 100 ML IV SCH (13:25)
[2022-01-17] MEDS ORDERED: PROPOFOL IV EMULSION 10 MG/ML 20 ML VIAL IV ONE (13:50)
[2022-01-17] MEDS ORDERED: DEXAMETHASONE SOD PHOS INJ 4 MG/ML SDV IV ONE (13:50)
[2022-01-17] MEDS ORDERED: ROCURONIUM BROMIDE 10 MG/ML 5ML VIAL IV ONE (13:50)
[2022-01-17] MEDS ORDERED: ONDANSETRON HCL INJ 2MG/ML 2ML 2 MG/ML VIAL IV ONE (13:50)
[2022-01-17] MEDS ORDERED: SEVOFLURANE INHAL SOLN 250 ML PEN BTL INH ONE (13:50)
[2022-01-17] MEDS ORDERED: EPHEDRINE SULFATE INJ 50 MG/ML VIAL IV ONE (13:50)
[2022-01-17] MEDS ORDERED: POVIDONE IODINE 0.05% 0.05 % ML PO ONE (13:50)
[2022-01-18] VITALS (9 sets, daily range): BP systolic 92–119; BP diastolic 57–68
[2022-01-18] MEDS: HYDROCODONE/APAP 10MG-325MG TAB PO PRN ×2 (01:05→21:28)
[2022-01-18 06:44] LABS: BASOPHILS # (AUTO) 0.1 (0.0-0.1); BASOPHILS % 0.5 % (0.0-1.0); EOSINOPHILS # (AUTO) 0.2 (0.0-0.4); EOSINOPHILS % 1.7 % (0.0-6.0); HEMATOCRIT 27.5 % (34.2-44.1); HEMOGLOBIN 8.2 g/dL (12.0-16.0); LYMPHOCYTES % 22.2 % (18.0-39.1); MEAN CORPUSCULAR HEMOGLOBIN 26.5 pg (28-32); MEAN CORPUSCULAR HGB CONC 29.8 g/dL (31-35); MONOCYTES # (AUTO) 0.6 (0.2-0.8); NEUTROPHILS # (AUTO) 6.1 (2.1-6.9); PLATELET COUNT 281 x10e3/uL (140-360); RED BLOOD COUNT 3.09 x10e6/uL (3.6-5.1); RED CELL DISTRIBUTION WIDTH 14.4 % (11.7-14.4)
[2022-01-18 07:17] LABS: ANION GAP 13.4 mmol/L (8-16); CALCIUM 8.5 mg/dL (8.4-10.2); CREATININE, SERUM 0.67 mg/dL (0.57-1.11); POTASSIUM 4.4 mmol/L (3.5-5.1)
[2022-01-18] MEDS: INSULIN LISPRO 100 UNIT/1 ML 3ML VIAL SQ SCH ×5 (07:30→21:25)
[2022-01-18] MEDS: SENNA-S TABLET PO SCH ×2 (08:25→17:13)
[2022-01-18] MEDS: PANTOPRAZOLE SOD 40 MG TABEC PO SCH (08:25)
[2022-01-18] MEDS: IRON SUCROSE 100 MG in SODIUM CHLORIDE 0.9% 100 ML IV SCH (12:01)
[2022-01-19 01:03] VITALS: BP 99/59
[2022-01-19 04:33] VITALS: BP 106/66
[2022-01-19 08:00] VITALS: BP 98/64
[2022-01-19] MEDS: INSULIN LISPRO 100 UNIT/1 ML 3ML VIAL SQ SCH (08:00)
[2022-01-19 08:38] VITALS: BP 98/64
[2022-01-19] MEDS: PANTOPRAZOLE SOD 40 MG TABEC PO SCH (08:52)
[2022-01-19] MEDS: SENNA-S TABLET PO SCH (08:52)
[2022-01-19 12:05] VITALS: BP 100/70
[2022-01-19] MEDS ORDERED: ONDANSETRON HCL 4 MG ORAL DISINTEGRATING TAB PO PRN (13:30)
[2022-01-19] MEDS ORDERED: ONDANSETRON ODT4 MG PO (13:43)
[2022-01-19] MEDS ORDERED: TYLENOL PO (13:46)
[2022-01-19] MEDS ORDERED: CIPRO250 MG PO (13:48)
[2022-01-19] MEDS ORDERED: NEURONTIN100 MG PO (13:49)
== END 2022-01-19 14:07 | disposition home or self-care (01) | DRG 660 ==
LOC: OR 10:51 → PACU V 15:20 → MED/SURG3 17:55
PROVIDERS: ADMIT Internal Medicine; ATTEND Internal Medicine
PROC: 0TT00ZZ Resection of Right Kidney, Open Approach (ICD-10-PCS; principal; 2022-01-14 12:21)
DX: N26.1 Atrophy of kidney (terminal) (principal); D62 Acute posthemorrhagic anemia; I10 Essential (primary) hypertension; E78.5 Hyperlipidemia, unspecified; E11.69 Type 2 diabetes mellitus with other specified complication; N13.6 Pyonephrosis; N26.9 Renal sclerosis, unspecified; E66.9 Obesity, unspecified; Z68.34 Body mass index [BMI] 34.0-34.9, adult; Z20.822 Contact with and (suspected) exposure to COVID-19; Z79.84 Long term (current) use of oral hypoglycemic drugs
CPT/HCPCS: 0223U; 36415; 71045; 80048; 81025; 82948; 83735; 85025; 85610; 85730; 86850; 86900; 86920; 88304; 88307; 93005; 94799; J0690; J1100; J1200; J1756; J2150; J2270; J2405; J3010; J7030; J7050; P9016